=== PATIENT | male | born 1995 | race Caucasian/White ===

== ENCOUNTER 2016-05-02 15:39 | Emergency (ER) | payer SELFPAY ==
--- NOTE | 2016-05-02 15:51 | ER Document Report ---
ED Medical Screen (RME) - General Stated Complaint: HIVES/DIZZY Notes: onset: this AM hives states he coughed up blood this am, no h/o nose bleed I have greeted and performed a rapid initial assessment of this patient. A comprehensive ED assessment and evaluation of the patient, analysis of test results and completion of the medical decision making process will be conducted by additional ED providers. TRAVEL OUTSIDE OF THE [place] IN LAST 30 DAYS: No - Related Data Allergies/Adverse Reactions: No Known Allergies Allergy (Verified 05/02/16 15:50) Past Medical History - Immunizations Hx Diphtheria, Pertussis, Tetanus Vaccination: Yes
[2016-05-02 15:56] VITALS: BP 130/67
== END 2016-05-02 18:06 | disposition left against medical advice (07) ==
LOC: ER 15:39
DX: R04.2 Hemoptysis (principal); L50.9 Urticaria, unspecified; R42 Dizziness and giddiness; Z53.20 Procedure and treatment not carried out because of patient's decision for unspecified reasons
CPT/HCPCS: 99281

== ENCOUNTER 2019-01-01 18:02 | Emergency (ER) | payer SELFPAY ==
[2019-01-01] MEDS ORDERED: LIDOCAINE 1% INJ-PF (10 MG/ML) 30 ML SDV INJ ONE (18:17)
[2019-01-01] MEDS ORDERED: DIPH/PERTUSS(ACELL)/TETANUS VAC/PF 0.5 ML SYR (>=10YO) IM ONE (18:19)
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
[2019-01-01 19:14] VITALS: BP 112/77
== END 2019-01-01 19:16 | disposition home or self-care (01) ==
LOC: ER 18:02
DX: S01.81XA Laceration without foreign body of other part of head, initial encounter (principal); W20.8XXA Other cause of strike by thrown, projected or falling object, initial encounter; Y93.89 Activity, other specified
CPT/HCPCS: 90715; 12011; J3490